=== PATIENT | male | born 1985 | race Caucasian/White ===

== ENCOUNTER 2018-06-19 17:33 | Emergency (ER) | payer OTHER ==
[~2018-06-19] VITALS: Ht 185.4 cm; Wt 115.7 kg
[2018-06-19 17:42] VITALS: BP 144/72
--- NOTE | 2018-06-19 18:24 | RADIOLOGY REPORT ---
EXAMINATION: LEFT ANKLE 3 VIEWS CLINICAL INFORMATION: Left ankle pain following injury. COMPARISON: None. TECHNIQUE: AP, lateral, oblique views of the left ankle were obtained. FINDINGS: There are no fractures or dislocations. There is soft tissue swelling overlying the lateral malleolus. A trace ankle joint effusion is identified. IMPRESSION: Soft tissue swelling and trace ankle joint effusion. No demonstrable fracture.
--- NOTE | 2018-06-19 19:38 | ED GENERAL ADULT ---
History of Present Illness General Chief Complaint: Foot or Ankle Injury Stated Complaint: L ANKLE INJURY AFTER PLAYING SOFTBALL PER PT Source: patient Exam Limitations: no limitations Vital Signs & Intake/Output Vital Signs & Intake/Output Vital Signs Date Time Temp Pulse Resp B/P B/P Pulse O2 O2 Flow FiO2 Mean Ox Delivery Rate 06/19 1942 Room Air 06/19 1742 98.7 98 16 144/72 98 Room Air Allergies Coded Allergies: No Known Allergies (06/19/18) Triage Note: 32 Y/O MALE C/O L ANKLE PAIN AND SWELLING S/P "ROLLING" ANKLE AND "FEELING A POP" WHILE PLAYING BASEBALL RISK INTERN. EVAL'D BY KATJA MTZ IN TRIAGE Triage Nurses Notes Reviewed? yes Onset: Abrupt Duration: minute(s): Timing: single episode today HPI: 32-year-old otherwise healthy male presenting with left ankle pain status post mechanical fall with ankle inversion while playing softball just prior to arrival. He denies head strike. Denies numbness or paresthesias. Has not been able to bear weight on the extremity. Past History Travel History Traveled to [place] past 21 day No Medical History Any Pertinent Medical History? none Neurological: NONE EENT: NONE Cardiovascular: NONE Respiratory: NONE Gastrointestinal: NONE Hepatic: NONE Renal: NONE Musculoskeletal: NONE Psychiatric: NONE Endocrine: NONE Blood Disorders: NONE Cancer(s): NONE [employer] ASC[employer] CONSULTANT/Reproductive: NONE Surgical History Surgical History: non-contributory Psychosocial History What is your primary language Vietnamese Tobacco Use: Never used Family History Hx Contributory? No Review of Systems Review of Systems Constitutional: Reports: no symptoms. EENTM: Reports: no symptoms. Respiratory: Reports: no symptoms. Cardiovascular: Reports: no symptoms. GI: Reports: no symptoms. Genitourinary: Reports: no symptoms. Musculoskeletal: Reports: see HPI. Skin: Reports: no symptoms. Neurological/Psychological: Reports: no symptoms. Hematologic/Endocrine: Reports: no symptoms. Immunologic/Allergic: Reports: no symptoms. All Other Systems: Reviewed and Negative Physical Exam Physical Exam General Appearance: well developed/nourished, no apparent distress, alert, awake Comments: Gen.: Well-nourished, well-developed, no acute distress. Head: Normocephalic, atraumatic. Eyes: Normal inspection bilaterally Ears: Normal inspection bilaterally Nose: Normal inspection Neck: Normal inspection Lungs: clear to auscultation bilaterally, normnal breath sounds Heart: regular rate and rhythm Abdomen: soft and non-tender EXTREMITIES: Left ankle Inspection: Significant edema to the lateral aspect of the left ankle Palpation: Tenderness to palpation over the lateral ankle, specifically over the lateral malleolus ROM: Unable to range the ankle joint Sensation: intact Motor strength: Unable to assess motor strength Pulse: 2+ dorsalis pedis and posterior tibialis pulses Neurologic: alert and oriented x3, steady gait Skin: warm and dry Psychiatric: Normal mood and affect, no apparent delusions or hallucinations, behavior appropriate Core Measures ACS in differential dx? No CVA/TIA Diagnosis: No Sepsis Present: No Sepsis Focused Exam Completed? No Progress Differential Diagnoses I considered the following diagnoses in my evaluation of the patient: [Ankle sprain versus ankle fracture versus ankle dislocation] Plan of Care: Orders Procedure Date/time Status Durable Medical Equipment 06/19 1919 Active X-ray IMPRESSION: Soft tissue swelling and trace ankle joint effusion. No demonstrable fracture. Likely with ankle sprain. Placed in [employer] and given crutches for ambulation. Offered Rx pain medication, but he states he will use [id number] pain medications. Patient does not have a PMD, therefore he was given orthopedics to follow-up with. Also requested for registration to arrange a PMD. Given strict return precautions. Initial ED EKG: none Departure Departure Disposition: HOME OR SELF CARE Condition: Stable Clinical Impression Primary Impression: Left ankle sprain Referrals: Isabella Rashid MD Patient Has No Primary Care Dr (PCP/Family) Additional Instructions: Use Motrin as needed for pain. Apply ice 2-3 times daily. Use crutches for ambulation with weightbearing as tolerable. Follow-up with orthopedics for reevaluation. Return to the emergency department for any new or worsening symptoms. Departure Forms: Customer Survey General Discharge Information Critical Care Note Critical Care Note Critical Care Time: non-applicable
== END 2018-06-19 19:43 ==
LOC: ERH 17:33
DX: S93.402A Sprain of unspecified ligament of left ankle, initial encounter (principal); W19.XXXA Unspecified fall, initial encounter; Y93.64 Activity, baseball
CPT/HCPCS: 73610-LT